=== PATIENT | female | born 1980 ===

== ENCOUNTER 2018-08-27 07:45 | Inpatient (IN) | payer OTHER ==
[2018-08-27] MEDS ORDERED: AMPICILLIN SODIUM 2 GM VIAL ONE (08:09)
[2018-08-27 08:33] VITALS: BMI 34.2
[2018-08-27 09:27] LABS: BASO % 0.2 % (0-2.0); EOS % 0.1 % (0-4.5); HEMATOCRIT 39.4 % (32.4-45.2); LYMPH % 10.6 % (8-40); MCH 30.9 pg (25.7-33.7); MEAN CELL VOLUME 93.6 fl (80-96); MONO % 5.2 % (3.8-10.2); NEUT % 83.9 % (42.8-82.8); PLATELET COUNT 205 K/MM3 (134-434); RBC 4.21 M/mm3 (3.60-5.2); RDW 15.6 % (11.6-15.6); WHITE BLOOD COUNT 8.6 K/mm3 (4.0-10.0)
[2018-08-27] MEDS ORDERED: AMPICILLIN - 2 GM in SODIUM CHLORIDE 100 ML IVPB STA (09:35)
[2018-08-27] MEDS ORDERED: DEXTROSE 5%-LACTATED RINGERS 1,000 ML IV SCH (09:45)
[2018-08-27] MEDS ORDERED: BUTORPHANOL TARTRATE 1 MG/ML VIAL IVPB PRN (09:49)
[2018-08-27] MEDS ORDERED: PROMETHAZINE HCL 25 MG/1 ML VIAL IVPUSH ONE (09:49)
[2018-08-27 09:53] LABS: INR 0.91 (0.83-1.09); PROTHROMBIN TIME (PATIENT) 10.7 SEC (9.7-13.0)
[2018-08-27 09:56] LABS: ACTIVATED PTT 29.1 SECONDS (25.2-36.5)
[2018-08-27 09:58] LABS: ANION GAP 10 MMOL/L (8-16); BLOOD UREA NITROGEN 8 mg/dL (7-18); CALCIUM 8.4 mg/dL (8.5-10.1); CHLORIDE 104 mmol/L (98-107); CO2 21 mmol/L (21-32); CREATININE 0.6 mg/dL (0.55-1.3); GLUCOSE,RANDOM 111 mg/dL (74-106); POTASSIUM 3.7 mmol/L (3.5-5.1); SODIUM 135 mmol/L (136-145)
[2018-08-27] MEDS ORDERED: OXYTOCIN 30 UNITS in 0.9% NS 30 UNIT/500 ML INFUS.BAG IVPB SCH ×2 (10:00→13:15)
--- NOTE | 2018-08-27 10:14 | HP ---
Past Medical History - Admission Chief Complaint: Uterine contractions History of Present Illness: 38yo @ 39.6wks here with uterine contractions. No VB/LOF. 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 Weeks Gestation by Dates: 39.6 ...EDC by Dates: 08/28/18 ...EDC by Sono: 08/26/18 - Past Surgical History Hx Myomectomy: No Hx Transabdominal Cerclage: No Additional Surgical History: Breast implants 2009 - Smoking History Smoking history: Never smoked Have you smoked in the past 12 months: No - Alcohol/Substance Use Hx Alcohol Use: No History of Substance Use: reports: None - Social History Usual Living Arrangement: Yes: With Spouse ADL: Independent History of Recent Travel: No Home Medications - Allergies Allergies/Adverse Reactions: Allergies Allergy/AdvReac Type Severity Reaction Status Date / Time No Known Allergies Allergy Verified 08/27/18 08:47 - Home Medications Home Medications: Ambulatory Orders One Daily Tablet 1 tab PO DAILY 08/27/18 Physical Exam - Maternity Vital Signs: Vital Signs Temperature 98.5 F 08/27/18 07:45 Pulse Rate 84 08/27/18 09:00 Respiratory Rate 20 08/27/18 09:00 Blood Pressure 122/60 08/27/18 09:00 O2 Sat by Pulse Oximetry (%) Constitutional: Yes: Well Nourished, No Distress, Calm Eyes: Yes: WNL, Conjunctiva Clear, EOM Intact HENT: Yes: WNL, Atraumatic, Normocephalic Neck: Yes: WNL, Supple, Trachea Midline Cardiovascular: Yes: WNL, Regular Rate and Rhythm Breast(s): Yes: WNL - Abdominal Exam/OB Number of Fetuses: Single Presentation: Vertex Contractions: Yes Regularity: Regular Intensity: Mild Monitor Mode: External Category: I Accelerations: Uniform Decelerations: None - Vaginal Exam/OB Vaginal Bleediing: No Speculum Exam: Yes Dilatation (cm): 5 Effacement (%): 100 Amniotic Membrane Status: Intact Presentation: Vertex/Position Station: -3 - Physical Exam Edema: Yes Edema: LLE: Trace, RLE: Trace - Labs Lab Results: CBC, BMP 08/27/18 09:20 08/27/18 09:20 Assessment/Plan 38yo @ 39.6wks here in labor Admit to L&D Cat I tracing Amp for GBS Epidural prn Anticipate Jose Oliveira MD
--- NOTE | 2018-08-27 10:16 | PN ---
Progress Note, Labor Vaginal Exam #1 Labor Exam Date: 08/27/18 Labor Exam Time: 10:15 Heart Rate (range): Cat I Dilatation: 7 Effacement (%): 100 Amniotic Membrane Status: Intact Station: -2
[2018-08-27] MEDS ORDERED: FENTANYL/BUPIVACAINE/NS/PF - PCEA - 50 ML DISP.SYRIN EP ONE (10:26)
[2018-08-27] MEDS ORDERED: ELECTROLYTE-148 SOLN 1,000 ML IV SCH (10:30)
[2018-08-27] MEDS ORDERED: BUPIVACAINE HCL/PF 0.25% (2.5MG/ML) 10 ML VIAL ONE (10:43)
[2018-08-27] MEDS ORDERED: NALOXONE HCL 0.4 MG/ML VIAL IVPUSH PRN (11:10)
[2018-08-27] MEDS ORDERED: FENTANYL/BUPIVACAINE/NS/PF - PCEA - 50 ML DISP.SYRIN EP SCH (11:15)
[2018-08-27] MEDS ORDERED: AMPICILLIN SODIUM 1 GM VIAL ONE (11:55)
[2018-08-27] MEDS: AMPICILLIN - 1 GM in SODIUM CHLORIDE 100 ML IVPB SCH ×3 (12:00→22:02)
--- NOTE | 2018-08-27 13:04 | PN ---
Progress Note, Labor Vaginal Exam #2 Labor Exam Date: 08/27/18 Labor Exam Time: 13:03 Heart Rate (range): Cat I Dilatation: 7 Effacement (%): 100 Amniotic Membrane Status: Ruptured Presentation: Vertex/Position Station: -3 Remarks: AROM, clears Start pitocin Anticipate
[2018-08-27] MEDS ORDERED: OXYTOCIN 20 UNITS in 0.9% NS 20 UNIT/1,000 ML INFUS.BAG IV ONE (15:06)
--- NOTE | 2018-08-27 15:06 | PN ---
Progress Note, Labor Vaginal Exam #3 Labor Exam Date: 08/27/18 Labor Exam Time: 15:04 Heart Rate (range): Cat II Dilatation: 10 Effacement (%): 100 Amniotic Membrane Status: Ruptured Presentation: Vertex/Position Station: +1 Remarks: One 2 minute decel to 90's with decreased variability thereafter, followed by 2 variable decelerations. In light of this FHT Cat II, will start pushing.
--- NOTE | 2018-08-27 16:56 | PN ---
Delivery - Delivery Vaginal Delivery: Spontaneous Type of Anesthesia: Epidural Episiotomy/Laceration: 1st degree EBL (cc): 250 Delivery, Single - Stages of Labor Placenta: Yes: Spontaneous - Feeding Plan Initial Plan: Elected not to breastfeed exclusively throughout hospitalization Remarks - Remarks Remarks: of VFI from ALEXI position. Nuchal x 1. AROM- with clear fluids previously, but thick meconium upon delivery of head. Spontaneous delivery of anterior shoulder. Infant placed on maternal abdomen, good cry. Cord clamped and cut. Weight pending. Apgars 9/9. Spontaneous delivery of intact placenta with 3VC. Perineum inspected, first degree laceration repaired with 2-0 chromic. Fundus firm. EBL 250. Mother and baby doing well. Emilia Oliveira MD
[2018-08-27] MEDS ORDERED: OXYTOCIN 20 UNITS in 0.9% NS 20 UNIT/1,000 ML INFUS.BAG IV SCH (19:15)
[2018-08-28 08:58] LABS: BASO % 0.1 % (0-2.0); EOS % 0.6 % (0-4.5); HEMATOCRIT 36.9 % (32.4-45.2); HEMOGLOBIN 12.8 GM/dL (10.7-15.3); LYMPH % 11.4 % (8-40); MCH 32.7 pg (25.7-33.7); MCHC 34.8 g/dl (32.0-36.0); MEAN CELL VOLUME 93.9 fl (80-96); MEAN PLT VOLUME 9.1 fl (7.5-11.1); MONO % 5.4 % (3.8-10.2); NEUT % 82.5 % (42.8-82.8); PLATELET COUNT 171 K/MM3 (134-434); RBC 3.93 M/mm3 (3.60-5.2); RDW 15.9 % (11.6-15.6); WHITE BLOOD COUNT 10.6 K/mm3 (4.0-10.0)
[2018-08-28 21:40] VITALS: TEMP 97.6
--- NOTE | 2018-08-29 07:37 | PN ---
Post Progress Note - Subjective Subjective: no complains except perineal soreness Post Day: 1 Type of Delivery: Vital Signs: Vital Signs Temperature 97.6 F 08/28/18 21:39 Pulse Rate 82 08/28/18 21:39 Respiratory Rate 20 08/28/18 21:39 Blood Pressure 119/72 08/28/18 21:39 O2 Sat by Pulse Oximetry (%) 98 08/27/18 18:45 Breast Exam: Yes: Soft, Other (BF). No: Engorged (breast fullness with milk ) Uterus: Yes: Fundus Firm, Fundus below umbilicus, Non-tender Lochia: Yes: Rubra Lochia, amount: Moderate Extremities: Yes: Calves non-tender Perineum: Yes: Episiotomy (healing ) Activity: Ambulating - Labs Labs: CBC WBC 10.6 K/mm3 (4.0-10.0) H 08/28/18 08:15 RBC 3.93 M/mm3 (3.60-5.2) 08/28/18 08:15 Hgb 12.8 GM/dL (10.7-15.3) 08/28/18 08:15 Hct 36.9 % (32.4-45.2) 08/28/18 08:15 MCV 93.9 fl (80-96) 08/28/18 08:15 MCH 32.7 pg (25.7-33.7) 08/28/18 08:15 MCHC 34.8 g/dl (32.0-36.0) 08/28/18 08:15 RDW 15.9 % (11.6-15.6) H 08/28/18 08:15 Plt Count 171 K/MM3 (134-434) 08/28/18 08:15 MPV 9.1 fl (7.5-11.1) 08/28/18 08:15 Absolute Neuts (auto) 8.7 K/mm3 (1.5-8.0) H 08/28/18 08:15 Neutrophils % 82.5 % (42.8-82.8) 08/28/18 08:15 Lymphocytes % 11.4 % (8-40) 08/28/18 08:15 Monocytes % 5.4 % (3.8-10.2) 08/28/18 08:15 Eosinophils % 0.6 % (0-4.5) D 08/28/18 08:15 Basophils % 0.1 % (0-2.0) 08/28/18 08:15 Nucleated RBC % 0 % (0-0) 08/28/18 08:15 Problem List - Problems (1) Vaginal delivery Code(s): O80 - ENCOUNTER FOR FULL-TERM UNCOMPLICATED DELIVERY (2) Encounter for visit Code(s): Z39.2 - ENCOUNTER FOR ROUTINE FOLLOW-UP Assessment/Plan stable discharge today
[2018-08-29 08:08] VITALS: BP 126/73; PULSE 80
[2018-08-29] MEDS ORDERED: DIPHTH,PERTUSS(ACELL),TET 0.5 ML DISP.SYRIN IM ONE (10:00)
--- NOTE | 2018-09-17 08:35 | DS ---
Physical Examination Vital Signs: Vital Signs Temperature 97.6 F 08/29/18 07:40 Pulse Rate 80 08/29/18 07:40 Respiratory Rate 20 08/29/18 07:40 Blood Pressure 126/73 08/29/18 07:40 O2 Sat by Pulse Oximetry (%) 98 08/27/18 18:45 Constitutional: Yes: Well Nourished, No Distress, Calm Eyes: Yes: WNL, Conjunctiva Clear, EOM Intact HENT: Yes: WNL, Atraumatic, Normocephalic Neck: Yes: WNL, Supple, Trachea Midline Cardiovascular: Yes: WNL, Regular Rate and Rhythm Respiratory: Yes: WNL, Regular, CTA Bilaterally Gastrointestinal: Yes: WNL, Normal Bowel Sounds Musculoskeletal: Yes: WNL Extremities: Yes: WNL Edema: No Integumentary: Yes: WNL Neurological: Yes: WNL, Alert, Oriented ...Motor Strength: WNL Psychiatric: Yes: WNL Labs: CBC, BMP 08/28/18 08:15 08/27/18 09:20 Discharge Summary Reason For Visit: LABOR Procedures: Principal: Spontaneous Vaginal Delivery Hospital Course: Patient presented in labor She had a Her course was uncomplicated and she was discharged home in stable condition by PPD#2 Condition: Stable - Instructions Diet, Activity, Other Instructions: Discharge Instructions * Out of Bed * * Regular Diet * Anne Care * Avoid sex for 6 weeks * rtc 4-6 weeks , call for appt If you experience excessive bleeding, pain, or fever over 101 degrees, call doctor, the clinic or go to the Emergency Room. [facility]: [phone] Referrals: Emilia Oliveira MD [Staff Physician] - Disposition: HOME - Home Medications Comprehensive Discharge Medication List: Ambulatory Orders One Daily Tablet 1 tab PO DAILY 08/27/18
== END 2018-08-29 14:35 | disposition home or self-care (01) | DRG 560 ==
LOC: JLDR 07:45 → J3W 20:40
PROVIDERS: ADMIT Obstetrics & Gynecology; ATTEND Obstetrics & Gynecology
PROC: 0HQ9XZZ Repair Perineum Skin, External Approach (ICD-10-PCS; principal; 2018-08-27)
DX: O70.0 First degree perineal laceration during delivery (principal); Z3A.39 39 weeks gestation of pregnancy; Z37.0 Single live birth
CPT/HCPCS: 36415; 59409; 80048; 85025; 85610; 85730; 86593; 86850; 86900; 86901; 90686; 90715; G0008